=== PATIENT | female | born 1970 | race Caucasian/White ===

== ENCOUNTER 2017-11-01 18:27 | Emergency (ER) | payer SELFPAY ==
[~2017-11-01] VITALS: Ht 160 cm; Wt 81.5 kg
[2017-11-01 18:32] VITALS: Ht 160 cm; Wt 81.5 kg
[2017-11-01 19:01] LABS: BASOPHILS 0.5 % (0-2); HEMATOCRIT 41.2 % (36.0-48.0); IMMATURE GRANULOCYTES 0.3 % (0-5); LYMPHOCYTES 19.3 % (15-50); MCH 32.8 pg (26.0-34.0); MCV 96.5 fL (80.0-100.0); MEAN PLATELET VOLUME 10.4 fL (7.4-10.4); MONOCYTES 7.3 % (2-11); NEUTROPHILS 70.6 % (40-80); PLATELET COUNT 361 10x3/uL (130-400); RBC 4.27 10x6/uL (4.00-5.40); RDW 13.6 % (11.5-14.5); WBC 11.7 10x3/uL (4.8-10.8)
[2017-11-01 19:30] LABS: ALBUMIN 3.2 g/dL (3.4-5.0); ANION GAP 11.4 mmol/L (8-16); BILIRUBIN - TOTAL 0.08 mg/dL (0.2-1.3); CALCIUM 8.4 mg/dL (8.5-10.1); CARBON DIOXIDE 27.2 mmol/L (21.0-32.0); CREATININE - SERUM 0.9 mg/dL (0.6-1.3); POTASSIUM - SERUM 3.6 mmol/L (3.5-5.1); PROTEIN - SERUM 6.7 g/dL (6.4-8.2)
[2017-11-01] MEDS ORDERED: BENZONATATE200 MG PO (19:44)
[2017-11-01] MEDS ORDERED: ZPAK PO (19:44)
[2017-11-01 20:16] VITALS: BP 137/75
== END 2017-11-01 20:16 | disposition home or self-care (01) ==
LOC: D.ER 18:27
PROVIDERS: Emergency Medicine
DX: B34.9 Viral infection, unspecified (principal); J40 Bronchitis, not specified as acute or chronic; M79.1 Myalgia; J02.9 Acute pharyngitis, unspecified; H92.03 Otalgia, bilateral; R11.10 Vomiting, unspecified; I10 Essential (primary) hypertension; K21.9 Gastro-esophageal reflux disease without esophagitis; F17.200 Nicotine dependence, unspecified, uncomplicated

== ENCOUNTER 2017-11-04 08:51 | Emergency (ER) | payer SELFPAY ==
[2017-11-01 18:32] VITALS: Ht 160 cm; Wt 81.4 kg
[~2017-11-04] VITALS: Ht 160 cm; Wt 81.4 kg
[~2017-11-04 08:51] MED LIST: BENZONATATE200 MG PO; ZPAK PO
[2017-11-04 09:56] LABS: APPEARANCE CLEAR (CLEAR); BILIRUBIN NEGATIVE (NEGATIVE); COLOR YELLOW (YELLOW); GLUCOSE NEGATIVE (NEGATIVE); KETONE NEGATIVE (NEGATIVE); NITRITE NEGATIVE (NEGATIVE); PROTEIN NEGATIVE (NEGATIVE); SPECIFIC GRAVITY 1.015 (1.005-1.020); UROBILINOGEN NORMAL (NORMAL)
[2017-11-04] MEDS ORDERED: ULTRAM50 MG PO (10:13)
[2017-11-04] MEDS ORDERED: NAPRELAN375 MG PO (10:13)
[2017-11-04 10:29] VITALS: BP 148/99
== END 2017-11-04 10:30 | disposition home or self-care (01) ==
LOC: D.ER 08:51
PROVIDERS: Family Medicine
DX: M54.5 Low back pain (principal); R05 Cough; R51 Headache; I10 Essential (primary) hypertension; K21.9 Gastro-esophageal reflux disease without esophagitis; F17.200 Nicotine dependence, unspecified, uncomplicated

== ENCOUNTER 2019-09-14 18:55 | Emergency (ER) | payer OTHER ==
[~2019-09-14] VITALS: Ht 160 cm; Wt 86.4 kg
[~2019-09-14 18:55] MED LIST changes: +NAPRELAN375 MG PO; +ULTRAM50 MG PO
[2019-09-14 20:07] VITALS: Ht 160 cm; Wt 86.4 kg
[2019-09-14] MEDS ORDERED: PENICILLIN V P500 MG PO (20:27)
[2019-09-14] MEDS ORDERED: ULTRAM50 MG PO (20:27)
== END 2019-09-14 20:47 | disposition home or self-care (01) ==
LOC: D.ER 18:55
DX: K04.7 Periapical abscess without sinus (principal); R68.84 Jaw pain; K21.9 Gastro-esophageal reflux disease without esophagitis; I10 Essential (primary) hypertension; Z72.0 Tobacco use